=== PATIENT | male | born 1955 | race Caucasian/White ===

== ENCOUNTER 2020-03-17 06:43 | Emergency (ER) | payer OTHER ==
[~2020-03-17] VITALS: Ht 188 cm; Wt 77.1 kg
[2020-03-17] MEDS ORDERED: ADVAIR 250-501 EACH INH (06:51)
[2020-03-17] MEDS ORDERED: SPIRIVA18 MCG INH (06:52)
[2020-03-17] MEDS ORDERED: ASMANEX110 MCG (06:52)
[2020-03-17 07:12] LABS: HEMATOCRIT 41.1 % (42.0-52.0); HEMOGLOBIN 13.8 gm/dL (14.0-18.0); MCH 29.2 pg (26.0-34.0); MCHC 33.6 g/dL (28.0-37.0); MCV 86.9 fL (80.0-100.0); PLATELET COUNT 207 thou/uL (150-400); RBC 4.73 mil/uL (4.50-6.00); RDW 14.3 % (10.5-14.5); WBC 5.7 thou/uL (4.0-11.0)
[2020-03-17 07:36] LABS: CALCIUM 8.4 mg/dL (8.5-10.1); CREATININE 0.8 mg/dL (0.7-1.3); MAGNESIUM 2.1 mg/dL (1.8-2.4); POTASSIUM 4.1 mmol/L (3.5-5.1)
[2020-03-17] MEDS ORDERED: PREDNISONE 20 M20 M1 PO (08:59)
[2020-03-17 09:06] VITALS: BP 149/89
[2020-03-17 12:57] LABS: METAMYELOCYTES 1 %
[2020-03-17 12:58] LABS: ABSOLUTE NEUTROPHILS 2.8 thou/uL (1.4-8.2); ANISOCYTOSIS SLIGHT
--- NOTE | 2020-03-20 08:15 | EKG ---
[facility] [place] [address] ELECTROCARDIOGRAM REPORT Name: RIGOBERTO LAI Room #: DEP [facility]#: [id number] Admission: 03/17/20 Attend Phys: Discharge: 03/17/20 Date of : 59 Report #: [id number] THIS REPORT FOR: cc: FAM - Family physician unknown FAM - Family physician unknown Cr Cuevas MD 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
== END 2020-03-17 09:30 | disposition home or self-care (01) ==
LOC: ER 06:43
PROVIDERS: Emergency Medicine
DX: J44.1 Chronic obstructive pulmonary disease with (acute) exacerbation (principal); Z20.828 Contact with and (suspected) exposure to other viral communicable diseases; Z79.899 Other long term (current) drug therapy; Z98.890 Other specified postprocedural states; Z98.84 Bariatric surgery status

== ENCOUNTER 2020-06-30 23:54 | Emergency (ER) | payer OTHER ==
[~2020-06-30] VITALS: Ht 172.7 cm; Wt 81.7 kg
[~2020-06-30 23:54] MED LIST: ADVAIR 250-501 EACH INH; ASMANEX110 MCG; PREDNISONE 20 M20 M1 PO; SPIRIVA18 MCG INH
[2020-07-01] MEDS ORDERED: PREDNISONE50 MG PO (03:13)
[2020-07-01 03:54] VITALS: BP 115/71
== END 2020-07-01 04:02 | disposition home or self-care (01) ==
LOC: ER 23:54
DX: J44.1 Chronic obstructive pulmonary disease with (acute) exacerbation (principal); Z79.899 Other long term (current) drug therapy

== ENCOUNTER 2020-07-21 22:19 | Emergency (ER) | payer OTHER ==
[~2020-07-21] VITALS: Ht 188 cm; Wt 90.7 kg
[~2020-07-21 22:19] MED LIST changes: +PREDNISONE50 MG PO
[2020-07-21 23:36] LABS: ABSOLUTE NEUTROPHILS 3.4 thou/uL (1.4-8.2); BASOPHILS 1.1 % (0.0-2.0); EOSINOPHILS 10.8 % (0.0-3.0); HEMATOCRIT 38.3 % (42.0-52.0); HEMOGLOBIN 12.6 gm/dL (14.0-18.0); LYMPHOCYTES 22.2 % (24.0-44.0); MCH 28.5 pg (26.0-34.0); MCV 86.4 fL (80.0-100.0); MONOCYTES 7.1 % (1.0-8.0); PLATELET COUNT 190 thou/uL (150-400); POLYS 58.8 % (36.0-66.0); RBC 4.43 mil/uL (4.50-6.00); RDW 13.9 % (10.5-14.5); WBC 5.7 thou/uL (4.0-11.0)
[2020-07-21 23:49] LABS: ANION GAP 7 mmol/L (7-16); BUN 14 mg/dL (7-18); CALCIUM 8.6 mg/dL (8.5-10.1); CHLORIDE 106 mmol/L (98-107); CO2 25 mmol/L (21-32); CREATININE 0.8 mg/dL (0.7-1.3); GLUCOSE 96 mg/dL (74-106); POTASSIUM 3.9 mmol/L (3.5-5.1); SODIUM 138 mmol/L (136-145)
[2020-07-21 23:58] LABS: ALBUMIN 3.5 g/dL (3.4-5.0); SGOT 17 U/L (15-37); SGPT 28 U/L (30-65); TOTAL BILIRUBIN 0.4 mg/dL (0.2-1.0); TOTAL PROTEIN 6.1 g/dL (6.4-8.2); TROPONIN-I <0.06 ng/mL (<0.06)
[2020-07-22] MEDS ORDERED: PREDNISONE 20 M20 M1 PO (01:46)
[2020-07-22 02:20] VITALS: BP 135/72
[2020-07-22] MEDS ORDERED: PROAIR HFA8.5 GM INH (02:22)
--- NOTE | 2020-07-24 07:27 | EKG ---
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
== END 2020-07-22 02:30 | disposition home or self-care (01) ==
LOC: ER 22:19
PROVIDERS: Student in an Organized Health Care Education/Training Program
DX: J44.1 Chronic obstructive pulmonary disease with (acute) exacerbation (principal); Z79.899 Other long term (current) drug therapy

== ENCOUNTER 2020-08-03 20:49 | Inpatient (IN) | payer OTHER ==
[~2020-08-03] VITALS: Ht 188 cm; Wt 86.2 kg
[~2020-08-03 20:49] MED LIST changes: +PROAIR HFA8.5 GM INH
[2020-08-03 20:50] VITALS: BP 133/79
[2020-08-03 21:27] LABS: ABSOLUTE NEUTROPHILS 4.8 thou/uL (1.4-8.2); BASOPHILS 0.8 % (0.0-2.0); EOSINOPHILS 9.9 % (0.0-3.0); HEMATOCRIT 40.3 % (42.0-52.0); HEMOGLOBIN 13.7 gm/dL (14.0-18.0); LYMPHOCYTES 18.3 % (24.0-44.0); MCH 28.9 pg (26.0-34.0); MCHC 33.9 g/dL (28.0-37.0); MCV 85.4 fL (80.0-100.0); MONOCYTES 7.6 % (1.0-8.0); PLATELET COUNT 201 thou/uL (150-400); POLYS 63.4 % (36.0-66.0); RBC 4.72 mil/uL (4.50-6.00); RDW 14.3 % (10.5-14.5); WBC 7.5 thou/uL (4.0-11.0)
[2020-08-03 21:34] LABS: ANION GAP 7 mmol/L (7-16); BUN 16 mg/dL (7-18); CALCIUM 8.6 mg/dL (8.5-10.1); CHLORIDE 109 mmol/L (98-107); CO2 25 mmol/L (21-32); CREATININE 0.9 mg/dL (0.7-1.3); GLUCOSE 86 mg/dL (74-106); SODIUM 141 mmol/L (136-145)
[2020-08-03 21:44] LABS: ALBUMIN 3.6 g/dL (3.4-5.0); SGOT 15 U/L (15-37); SGPT 24 U/L (30-65); TOTAL BILIRUBIN 0.3 mg/dL (0.2-1.0); TOTAL PROTEIN 6.2 g/dL (6.4-8.2); TROPONIN-I <0.06 ng/mL (<0.06)
[2020-08-04 04:52] VITALS: BP 123/64
[2020-08-04 07:23] VITALS: BP 129/73
--- NOTE | 2020-08-04 07:28 | NUR ---
PT ARRIVED TO UNIT APPROX 0540. ADMISSION AND ASSESSMENT COMPLETED. PT A&Ox4, UP AD ANUJA, EDUCATED TO CALL FOR HELP NEEDED. PT ON RA, COARSE/WHEEZY LUNGS W/ SOME CRACKLES IN BASES. REGULAR HR, ACTIVE BOWEL SOUNDS. NEW IV PLACED TO LEFT FA. NO OTHER CONCERNS, SHIFT REPORT GIVEN AT 0700.
--- NOTE | 2020-08-04 07:45 | EKG ---
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
[2020-08-04 11:02] LABS: HEMATOCRIT 40.5 % (42.0-52.0); HEMOGLOBIN 13.4 gm/dL (14.0-18.0); MCH 28.3 pg (26.0-34.0); MCV 85.8 fL (80.0-100.0); RBC 4.72 mil/uL (4.50-6.00); RDW 14.7 % (10.5-14.5); WBC 8.3 thou/uL (4.0-11.0)
[2020-08-04 11:09] LABS: CALCIUM 9.3 mg/dL (8.5-10.1); POTASSIUM 4.2 mmol/L (3.5-5.1)
[2020-08-04 15:59] VITALS: BP 129/75
--- NOTE | 2020-08-04 16:06 | NUR ---
INITIAL ASSESSMENT: Consult received. ASHLEY reviewed chart and spoke with nursing and attending physician. Pt was admitted from home due to COPD exacerbation. Pt placed in Enhanced Isolation to r/o COVID-19. Pt's test was negative. Pt is on IV abx and IV steroids. ASHLEY spoke with pt via phone. Introduced role of SW. Pt is alert/orientated x 4. Pt reports he lives at home with his . Prior to admission, pt was independent with ADLs. Pt does not use any DME for ambulation. No hx of services or post-acute placement. Pt's PCP is in [place]. Pt unsure of PCP's name. Pt interested in following up with pulmonology group at [facility]. Pt wanting to confirm they accept his insurance. ASHLEY faxed faced sheet to pulm office. The business office closed at 1200 today. Will follow up with pulm office on Friday and notify pt. Per pt, he may discharge home later today or tomorrow. No discharge needs identified. ASHLEY is available to assist should needs arise.
--- NOTE | 2020-08-04 18:23 | NUR ---
ASSUMED PATIENT CARE AT 0700. A/O X4. TOLERATED ON RA. COVID NEGATIVE. PROGRESSING TOWARDS POC GOALS.
[2020-08-04 20:50] VITALS: BP 116/64
--- NOTE | 2020-08-04 23:16 | NUR ---
ASSUMED PT CARE AT AROUND 1915 HRS. PT IS ALERT AND ORIENTED. UP AD ANUJA IN ROOM. HE DENIES ANY PAIN. MILD SOA WITH ACTIVITY WELL MILD PURCHASING ENGINEER COUGH. HE CONTINUES ON NEBULIZER TREATMENTS. AFEBRILE. VOIDING PER URINAL.REPORTS GOOD APPETITE WITH NO GI DISCOMFORT.SATTING WELL ABOVE 95% ON ROOM AIR. APPEARS TO BE IN NO DISTRESS.CALLS WITH NEEDS. CALL LIGHT WITHIN REACH.
[2020-08-05 05:06] VITALS: BP 124/74
[2020-08-05 05:33] LABS: CALCIUM 9.2 mg/dL (8.5-10.1); CREATININE 0.9 mg/dL (0.7-1.3); POTASSIUM 4.1 mmol/L (3.5-5.1)
[2020-08-05 09:13] VITALS: BP 116/72
[2020-08-05] MEDS ORDERED: LEVOFLOXACIN750 MG PO (15:21)
[2020-08-05 15:23] VITALS: BP 123/80
[2020-08-05] MEDS ORDERED: PREDNISONE 5 MG5 M1 PO (15:23)
[2020-08-05 15:37] VITALS: BP 123/80
--- NOTE | 2020-08-05 15:48 | NUR ---
PATIENT TOLERATED ON RA WELL. UP AD ANUJA. DC TO HOME NOW
== END 2020-08-05 16:10 | disposition home or self-care (01) | DRG 193 ==
LOC: ER 20:49 → 3W 08-04 02:19 → EROBS 08-04 02:19 → 3W 08-04 05:28
PROVIDERS: Emergency Medicine; Nurse Practitioner Family; ADMIT Hospitalist; ATTEND Hospitalist
DX: J18.9 Pneumonia, unspecified organism (principal); J96.01 Acute respiratory failure with hypoxia; J44.1 Chronic obstructive pulmonary disease with (acute) exacerbation; J44.0 Chronic obstructive pulmonary disease with (acute) lower respiratory infection; J98.11 Atelectasis; Z20.828 Contact with and (suspected) exposure to other viral communicable diseases; Z90.49 Acquired absence of other specified parts of digestive tract; Z98.84 Bariatric surgery status; Z79.899 Other long term (current) drug therapy; Z87.891 Personal history of nicotine dependence
CPT/HCPCS: 10080

== ENCOUNTER 2020-10-16 16:01 | Emergency (ER) | payer OTHER ==
[~2020-10-16] VITALS: Ht 188 cm; Wt 88.5 kg
[~2020-10-16 16:01] MED LIST changes: +LEVOFLOXACIN750 MG PO; +PREDNISONE 5 MG5 M1 PO
[2020-10-16] MEDS ORDERED: PREDNISONE 5 MG5 M1 PO (16:16)
[2020-10-16 17:42] VITALS: BP 135/78
[2020-10-16] MEDS ORDERED: ALBUTEROL2.5 MG/3 M INH (19:15)
[2020-10-16] MEDS ORDERED: PROAIR HFA8.5 GM INH (19:15)
[2020-10-16] MEDS ORDERED: PREDNISONE 20 M20 M1 PO (19:15)
--- NOTE | 2020-10-17 07:30 | EKG ---
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: sidney : 1955 Requested By: Wang Lozano Order Number: [id number] MD: Emil Jaramillo Measurements Intervals [place] Rate: 79 P: 57 [place]: 161 QRS: -16 QRSD: 111 T: 55 QT: 384 QTc: 441 Interpretive Statements Sinus rhythm Borderline left axis deviation RSR' in V1 or V2, right VCD or RVH Compared to ECG 08/03/2020 23:15:26 Right ventricular hypertrophy now present Electronically Signed On 10-17-2020 7:30:02 CARD LACER JACQUARD by Emil Jaramillo [email or web address] <ELECTRONICALLY SIGNED> By: Emil Jaraimllo MD, [facility] 10/17/20729 1639 1639 Emil Jaramillo MD, FACC /EPI
== END 2020-10-16 19:15 | disposition home or self-care (01) ==
LOC: ER 16:01
DX: J45.901 Unspecified asthma with (acute) exacerbation (principal); J44.9 Chronic obstructive pulmonary disease, unspecified; Z79.899 Other long term (current) drug therapy; Z87.891 Personal history of nicotine dependence; Z20.828 Contact with and (suspected) exposure to other viral communicable diseases

== ENCOUNTER 2020-10-29 21:51 | Inpatient (IN) | payer OTHER ==
[~2020-10-29] VITALS: Ht 188 cm; Wt 90.7 kg
[~2020-10-29 21:51] MED LIST changes: +ALBUTEROL2.5 MG/3 M INH
[2020-10-29 21:53] VITALS: BP 127/94
[2020-10-29 22:18] LABS: ABSOLUTE NEUTROPHILS 6.8 thou/uL (1.4-8.2)
[2020-10-29 22:23] LABS: ANION GAP 11 mmol/L (7-16); BASOPHILS 0.8 % (0.0-2.0); BUN 19 mg/dL (7-18); CALCIUM 9.4 mg/dL (8.5-10.1); CHLORIDE 105 mmol/L (98-107); CO2 25 mmol/L (21-32); CREATININE 0.9 mg/dL (0.7-1.3); EOSINOPHILS 7.5 % (0.0-3.0); GLUCOSE 95 mg/dL (74-106); HEMATOCRIT 42.6 % (42.0-52.0); LYMPHOCYTES 12.9 % (24.0-44.0); MCH 28.6 pg (26.0-34.0); MCHC 32.9 g/dL (28.0-37.0); MCV 87.1 fL (80.0-100.0); MONOCYTES 11.3 % (1.0-8.0); PLATELET COUNT 260 thou/uL (150-400); POLYS 67.5 % (36.0-66.0); POTASSIUM 4.4 mmol/L (3.5-5.1); RBC 4.89 mil/uL (4.50-6.00); SODIUM 141 mmol/L (136-145)
[2020-10-29 22:32] LABS: TROPONIN-I <0.06 ng/mL (<0.06)
[2020-10-30] VITALS (7 sets, daily range): BP systolic 113–154; BP diastolic 62–93
--- NOTE | 2020-10-30 07:45 | NUR ---
ASSUMED CARE OF PT AT 0345HRS FROM ED. PT AOX4 AND LETS NEEDS BE KNOWN. PT WAS ORIENTED TO THE UNIT AND HIS ROOM. PT WAS ABLE TO ANSWER ALL ADMISSION RELATED QUESTIONS AND SIGN OWN CONSENTS. PT DENIES PAIN OR NAUSEA. ASSESSMENT CHARTED. PT ON TELE. PT DESATS WITH ACTIVITY. VSS AND NO S/S OF ACUTE DISTRESS. PT ON RA. REPORT GIVEN TO AM RN.
--- NOTE | 2020-10-30 11:13 | EKG ---
[address] [place] [address] ELECTROCARDIOGRAM REPORT Name: RIGOBERTO LAI Room #: 460-P ADM IN M.R.#: [id number] Admission: 10/30/20 Attend Phys: Hi Bennett MD Discharge: Date of : 59 Report #: [id number] 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: [facility] 1955 Requested By: Sofia Crabtree Order Number: [id number] MD: Emil Jaramillo Measurements Intervals [place] Rate: 99 P: 68 [place]: 158 QRS: -4 QRSD: 99 T: 62 QT: 353 QTc: 453 Interpretive Statements Sinus rhythm Inferior infarct, old Compared to ECG 10/16/2020 16:39:41 Myocardial infarct finding now present Right ventricular hypertrophy no longer present Electronically Signed On 10-30-2020 11:12:53 SEWING LINE BALER by Emil Jaramillo [email or web address] <ELECTRONICALLY SIGNED> By: Emil Jaramillo MD, [facility] 10/30/20 1112 40 40 Emil Jaramillo MD, FACC /EPI
--- NOTE | 2020-10-30 16:12 | NUR ---
PT ADMITTED RELATED TO SOB; COPD EX. CM REVIEWED CHART AND SPOKE WITH CARE TEAM. CM CALLED AND SPOKE WITH PT OVER THE PHONE THIS DAY. PT APPREARED TO BE A&O X4. CM ROLE INTRODUCED. PT INDICATED HE RESIDES IN AN APARTMENT AT [place] WITH HIS . 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 PT INDICATED NO DME OR HOME O2. PT HAD NEBULIZER. PT INDICATED NO HH HX. PT INDICATED THAT HE SEES A PCP AT CLINIC [facility] TO [facility] FIRST NAME JASPER. PT INDICATED HE IS RECEPTIVE TO HH IF NEEDED UPON DC. CM TO FOLLOW INDICATED WITH DC PLANNING.
--- NOTE | 2020-10-30 18:10 | NUR ---
ASSUMED CARE OF PATIENT AFTER REPORT. ASSESSMENT CHARTED. NO MEDICATIONS WERE REQUESTED PER PATIENT. PATIENT IS A&OX4 AND MAKES NEEDS KNOWN. PATIENT GETS UP INDEPENDENTLY W STEADY GAIT. RECIEVED BREATHING TX. VSS, DENIES PAIN. VOICED NO CONCERNS THIS SHIFT. SPOUSE AT BEDSIDE. WILL CONTINUE TO MONITOR AND FOLLOW PLAN OF CARE
--- NOTE | 2020-10-31 05:22 | NUR ---
Pt. rested quietly during the night when checked on during frequent rounds. He offers no c/o shortness of air. Up ad lo in the room. No c/o pain.
--- NOTE | 2020-10-31 08:00 | NUR ---
PT RESTING IN BED. PT DENIES ANY PAIN AT THIS TIME OR SOB. PT STATED HE DOES GET SOA WITH ACTIVITY. PT ON ROOM AIR AT THIS TIME. PT LBM 10/31. PT LUNGS CLEAR AT THIS TIME. PT STATED HE HAS DRY COUGH NO PRODUCTION.
[2020-10-31 10:15] VITALS: BP 116/68
[2020-10-31] MEDS ORDERED: PREDNISONE 5 MG5 M1 PO (11:10)
[2020-10-31 14:29] VITALS: BP 116/68
[2020-10-31 14:30] VITALS: BP 116/68
--- NOTE | 2020-10-31 16:09 | NUR ---
PT VERBALY UNDERSTOOD D/C ORDERS. PT LEFT VIA W/C WITH STAFF AND . PT IN A GOOD MOOD WHEN LEAVING MAKING JOKES AND TOLERATING ACTIVITY WITHOUT SOB.
== END 2020-10-31 16:11 | disposition home or self-care (01) | DRG 189 ==
LOC: ER 21:51 → 4W 10-30 00:37 → EROBS 10-30 00:37 → 4W 10-30 03:45
PROVIDERS: Emergency Medicine; ADMIT Hospitalist; ATTEND Hospitalist
DX: J96.01 Acute respiratory failure with hypoxia (principal); J44.1 Chronic obstructive pulmonary disease with (acute) exacerbation; D72.10 Eosinophilia, unspecified; Z20.822 Contact with and (suspected) exposure to COVID-19; Z90.49 Acquired absence of other specified parts of digestive tract; Z98.84 Bariatric surgery status; Z79.899 Other long term (current) drug therapy; Z87.891 Personal history of nicotine dependence
CPT/HCPCS: 10045

== ENCOUNTER 2021-02-04 13:45 | Emergency (ER) | payer OTHER ==
[~2021-02-04] VITALS: Ht 188 cm; Wt 90.7 kg
[2021-02-04 14:27] LABS: HEMOGLOBIN 13.9 gm/dL (14.0-18.0)
[2021-02-04 14:32] LABS: HEMATOCRIT 40.7 % (42.0-52.0); MCH 28.6 pg (26.0-34.0); MCHC 34.1 g/dL (28.0-37.0); MCV 83.9 fL (80.0-100.0); PLATELET COUNT 215 thou/uL (150-400); RBC 4.85 mil/uL (4.50-6.00); RDW 13.9 % (10.5-14.5); WBC 8.5 thou/uL (4.0-11.0)
[2021-02-04 14:37] LABS: CALCIUM 8.6 mg/dL (8.5-10.1); CREATININE 0.9 mg/dL (0.7-1.3)
[2021-02-04 14:45] LABS: ALBUMIN 3.7 g/dL (3.4-5.0); TOTAL BILIRUBIN 0.4 mg/dL (0.2-1.0); TOTAL PROTEIN 6.3 g/dL (6.4-8.2)
[2021-02-04 14:51] LABS: PLATELET ESTIMATE NORMAL
[2021-02-04] MEDS ORDERED: PREDNISONE 10 M10 MG PO (16:35)
[2021-02-04] MEDS ORDERED: DOXYCYCLINE 10100 M2 PO (16:35)
[2021-02-04 16:49] VITALS: BP 120/80
--- NOTE | 2021-02-05 07:02 | EKG ---
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: zi : 1955 Requested By: Amarilis Pierce Order Number: [id number] MD: Emil Jaramillo Measurements Intervals [place] Rate: 61 P: 19 [place]: 180 QRS: -15 QRSD: 108 T: 42 QT: 427 QTc: 430 Interpretive Statements Sinus rhythm Borderline left axis deviation Low voltage, precordial leads RSR' in V1 or V2, probably normal variant Baseline wander in lead(s) V3 Compared to ECG 10/29/2020 22:41:57 Low QRS voltage now present RSR' in V1 or V2 now present Myocardial infarct finding no longer present Electronically Signed On 02-05-2021 7:02:35 CDT by Emil Jaramillo [email or web address] <ELECTRONICALLY SIGNED> By: Emil Jaramillo MD, [facility] 02/05/21 0702 151 151 Emil Jaramillo MD, [facility] /EPI
== END 2021-02-04 16:51 | disposition home or self-care (01) ==
LOC: ER 13:45
PROVIDERS: Nurse Practitioner Family
DX: J44.1 Chronic obstructive pulmonary disease with (acute) exacerbation (principal); Z98.84 Bariatric surgery status; Z79.899 Other long term (current) drug therapy

== ENCOUNTER → 2021-02-05 | Outpatient (CLI) | payer OTHER ==
[~2021-02-05] MED LIST changes: +DOXYCYCLINE 10100 M2 PO; +PREDNISONE 10 M10 MG PO
== END ==
LOC: CAT 11:22
PROVIDERS: ATTEND Pediatrics
DX: R91.1 Solitary pulmonary nodule (principal); R91.8 Other nonspecific abnormal finding of lung field; I25.10 Atherosclerotic heart disease of native coronary artery without angina pectoris; G47.33 Obstructive sleep apnea (adult) (pediatric); R06.00 Dyspnea, unspecified

== ENCOUNTER 2021-03-04 20:39 | Emergency (ER) | payer OTHER ==
[~2021-03-04] VITALS: Ht 188 cm; Wt 93.0 kg
[2021-03-04 21:22] LABS: ABSOLUTE NEUTROPHILS 5.1 thou/uL (1.4-8.2); BASOPHILS 1.1 % (0.0-2.0); EOSINOPHILS 10.6 % (0.0-3.0); HEMATOCRIT 40.9 % (42.0-52.0); HEMOGLOBIN 13.6 gm/dL (14.0-18.0); LYMPHOCYTES 15.3 % (24.0-44.0); MCH 28.2 pg (26.0-34.0); MCHC 33.2 g/dL (28.0-37.0); MONOCYTES 7.1 % (1.0-8.0); PLATELET COUNT 211 thou/uL (150-400); POLYS 65.9 % (36.0-66.0); RBC 4.82 mil/uL (4.50-6.00); RDW 14.3 % (10.5-14.5); WBC 7.7 thou/uL (4.0-11.0)
[2021-03-04 21:30] LABS: ANION GAP 10 mmol/L (7-16); BUN 14 mg/dL (7-18); CALCIUM 8.9 mg/dL (8.5-10.1); CHLORIDE 108 mmol/L (98-107); CO2 25 mmol/L (21-32); GLUCOSE 121 mg/dL (74-106); POTASSIUM 4.5 mmol/L (3.5-5.1); SODIUM 143 mmol/L (136-145)
[2021-03-04 21:41] LABS: ALBUMIN 3.7 g/dL (3.4-5.0); SGOT 14 U/L (15-37); SGPT 25 U/L (16-63); TOTAL BILIRUBIN 0.4 mg/dL (0.2-1.0); TOTAL PROTEIN 6.5 g/dL (6.4-8.2); TROPONIN-I <0.06 ng/mL (<0.06)
[2021-03-04] MEDS ORDERED: PREDNISONE 20 M20 MG PO (22:29)
[2021-03-04 22:35] VITALS: BP 117/74
--- NOTE | 2021-03-05 07:06 | EKG ---
[place] [address] [facility] [place] [address] ELECTROCARDIOGRAM REPORT Name: RIGOBERTO LAI Room #: DEP AYLA Gomez#: [id number] Admission: 03/04/21 Attend Phys: Discharge: 03/04/21 Date of : 59 Report #: [id number] [facility] ED Test Date: 2021-03-04 Test Time: 20:53:57 Pat Name: RIGOBERTO LAI Department: Room: Gender: M Emergency Department Coordinator: AURE : 1955 Requested By: Mari Guerra Order Number: [id number] MD: Emil Jaramillo Measurements Intervals [place] Rate: 86 P: 56 [place]: 152 QRS: -3 QRSD: 118 T: 60 QT: 380 QTc: 455 Interpretive Statements Sinus rhythm Nonspecific intraventricular conduction delay Compared to ECG 02/04/2021 15:13:50 Intraventricular conduction delay now present Electronically Signed On 03-05-2021 7:06:18 CDT by Emil Jaramillo [email or web address] <ELECTRONICALLY SIGNED> By: Emil Jaramillo MD, [facility] 03/05/21705 52 52 Emil Jaramillo MD, FACC /EPI
== END 2021-03-04 22:45 | disposition home or self-care (01) ==
LOC: ER 20:39
PROVIDERS: Physician Assistant
DX: J44.1 Chronic obstructive pulmonary disease with (acute) exacerbation (principal); Z79.899 Other long term (current) drug therapy; Z98.84 Bariatric surgery status

== ENCOUNTER → 2021-05-09 | Outpatient (CLI) | payer OTHER ==
[~2021-05-09] MED LIST changes: +PREDNISONE 20 M20 MG PO
== END ==
LOC: RAD 11:46
PROVIDERS: ATTEND Pediatrics
DX: R06.02 Shortness of breath (principal)

== ENCOUNTER 2021-05-21 08:22 | Emergency (ER) | payer OTHER ==
[~2021-05-21] VITALS: Ht 188 cm; Wt 93.0 kg
[2021-05-21] MEDS ORDERED: CIPROFLOXACIN500 M1 PO (10:46)
[2021-05-21 12:12] VITALS: BP 146/97
--- NOTE | 2021-05-21 15:52 | EKG ---
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: : 1955 Requested By: Sofia Crabtree Order Number: [id number] MD: Cr Cuevas Measurements Intervals [place] Rate: 85 P: 74 [place]: 167 QRS: 19 QRSD: 112 T: 69 QT: 389 QTc: 463 Interpretive Statements Sinus rhythm No significant abnormality Baseline wander in lead(s) V2 Compared to ECG 03/04/2021 20:53:57 No significant change was found Electronically Signed On 05-21-2021 15:52:19 CDT by Cr Cuevas [email or web address] <ELECTRONICALLY SIGNED> By: Cr Cuevas MD, [facility] 05/21/21 1552 0827 6 Cr Cuveas MD, [facility] /EPI
== END 2021-05-21 12:13 | disposition home or self-care (01) ==
LOC: ER 08:22
DX: J44.1 Chronic obstructive pulmonary disease with (acute) exacerbation (principal); Z20.822 Contact with and (suspected) exposure to COVID-19; Z90.49 Acquired absence of other specified parts of digestive tract; Z79.51 Long term (current) use of inhaled steroids; Z79.891 Long term (current) use of opiate analgesic; Z79.899 Other long term (current) drug therapy; Z87.891 Personal history of nicotine dependence

== ENCOUNTER → 2021-05-22 | Outpatient (CLI) | payer OTHER ==
[~2021-05-22] MED LIST changes: +CIPROFLOXACIN500 M1 PO
[2021-05-23 10:08] LABS: ANTI-DNA SCREEN <1 IU/mL (0-9); ANTI-RNP <0.2 AI (0.0-0.9)
[2021-05-24 11:08] LABS: ALTERNARIA <0.10 kU/L (Class 0); ASPERGILLUS IGE <0.10 kU/L (Class 0); BERMUDA GRASS <0.10 kU/L (Class 0); BOXELDER/MAPLE <0.10 kU/L (Class 0); CLADOSPORIUM <0.10 kU/L (Class 0); COCKROACH <0.10 kU/L (Class 0); COTTONWOOD <0.10 kU/L (Class 0); D. FARINAE <0.10 kU/L (Class 0); D. PTERONYSSINUS <0.10 kU/L (Class 0); DOG DANDER <0.10 kU/L (Class 0); ELM <0.10 kU/L (Class 0); MOUNTAIN CEDAR <0.10 kU/L (Class 0); MULBERRY IGE <0.10 kU/L (Class 0); OAK <0.10 kU/L (Class 0); PENICILLIUM NOTATUM <0.10 kU/L (Class 0); RUSSIAN THISTLE IGE <0.10 kU/L (Class 0); SHORT RAGWEED <0.10 kU/L (Class 0); TIMOTHY IGE <0.10 kU/L (Class 0); WHITE ASH IGE <0.10 kU/L (Class 0)
== END ==
LOC: LAB 10:03
PROVIDERS: ATTEND Pediatrics
DX: J98.4 Other disorders of lung (principal); J38.3 Other diseases of vocal cords; R79.89 Other specified abnormal findings of blood chemistry; R13.19 Other dysphagia

== ENCOUNTER → 2021-05-23 | Outpatient (CLI) | payer OTHER | LOC: SPEECH 08:50 → RAD 08:50 | PROVIDERS: ATTEND Pediatrics | DX: J38.3 Other diseases of vocal cords (principal); R79.89 Other specified abnormal findings of blood chemistry; R13.12 Dysphagia, oropharyngeal phase; J84.9 Interstitial pulmonary disease, unspecified; R05 Cough ==

== ENCOUNTER 2021-07-19 09:12 | Inpatient (IN) | payer OTHER ==
[~2021-07-19] VITALS: Ht 188 cm; Wt 95.3 kg
[2021-07-19 09:20] VITALS: BP 151/81
[2021-07-19] MEDS ORDERED: TRELEGY ELLIPT1 EACH INH (09:42)
[2021-07-19 10:24] LABS: ABSOLUTE NEUTROPHILS 3.6 thou/uL (1.4-8.2); BASOPHILS 0.9 % (0.0-2.0); EOSINOPHILS 7.9 % (0.0-3.0); HEMOGLOBIN 14.2 gm/dL (14.0-18.0); LYMPHOCYTES 16.1 % (24.0-44.0); MCH 27.9 pg (26.0-34.0); MCV 84.6 fL (80.0-100.0); MONOCYTES 6.4 % (1.0-8.0); PLATELET COUNT 171 thou/uL (150-400); POLYS 68.7 % (36.0-66.0); RBC 5.08 mil/uL (4.50-6.00); RDW 13.6 % (10.5-14.5); WBC 5.2 thou/uL (4.0-11.0)
[2021-07-19 10:30] LABS: CALCIUM 8.8 mg/dL (8.5-10.1); CREATININE 0.9 mg/dL (0.7-1.3)
[2021-07-19 12:13] VITALS: BP 133/86
[2021-07-19 12:55] VITALS: BP 142/101
--- NOTE | 2021-07-19 14:57 | NUR ---
assumed care of pt on arrival to unit at approx 1300. pt alert and oriented, in no apparent distress. weaned to room air, tolerating well. scattered wheezes to auscultation. up w/ steady gait. iv steroids and abx administered per order. good appetite. calls out appropriately. voicing no concerns at this time. sinus on telemetry. wcm.
--- NOTE | 2021-07-19 15:34 | EKG ---
[place] [address] [facility] [place] [address] ELECTROCARDIOGRAM REPORT Name: RIGOBERTO LAI Room #: 364-P ADM IN M.R.#: [id number] Admission: 07/19/21 Attend Phys: Hi Bennett MD Discharge: Date of : 59 Report #: [id number] [facility] ED Test Date: 2021-07-19 Test Time: 09:28:49 Pat Name: RIGOBERTO LAI Department: Room: 364 Gender: M Supervisor Fleshing: TERESA : 1955 Requested By: Bishop Moore Order Number: [id number] MD: Emil Jaramillo Measurements Intervals [place] Rate: 80 P: 79 [place]: 171 QRS: -14 QRSD: 106 T: 66 QT: 388 QTc: 448 Interpretive Statements Sinus rhythm Abnormal R-wave progression, early transition Inferior infarct, old Baseline wander in lead(s) V1,V5,V6 Compared to ECG 05/21/2021 08:27:59 Myocardial infarct finding now present Electronically Signed On 07-19-2021 15:34:44 CDT by Emil Jaramillo [email or web address] <ELECTRONICALLY SIGNED> By: Emil Jaramillo MD, [facility] 07/19/21 1534 Emil Jaramillo MD, [facility] /EPI
[2021-07-19 15:37] VITALS: BP 124/79
[2021-07-19 20:05] VITALS: BP 127/75
[2021-07-19 23:50] VITALS: BP 122/70; BP 131/67
[2021-07-20 03:26] VITALS: BP 133/87
--- NOTE | 2021-07-20 07:27 | NUR ---
PT MAKING PROGRESS TOWARDS GOAL. ON ROOM AIR THROUGHOUT THE NIGHT. DENIED ANY SOA WHILE AT REST. HAS BEEN ABLE TO AMBULATE TO THE TOILET W/O ANY DISTRESS.
[2021-07-20 07:39] VITALS: BP 124/79
--- NOTE | 2021-07-20 11:05 | NUR ---
INITIAL ASSESSMENT: SW reviewed chart and spoke with nursing and attending physician. Pt was admitted from home due to COPD. Pt is on IV abx and IV steroids. Pt may be ready to discharge home later today or tomorrow. SW met with pt at bedside. Introduced role of SW. Pt is alert/orientated x 4. Pt reports he lives at home with his and son. Prior to admission, pt was independent with ADLs. No use of DME. No hx of HH or post-acute placement. Pt's PCP is Dr. Josseline Wiley. No discharge needs identified at this time. SW is available to assist should needs arise.
[2021-07-20 15:53] VITALS: BP 139/88
[2021-07-20] MEDS ORDERED: AZITHROMYCIN500 MG PO (18:26)
[2021-07-20] MEDS ORDERED: PREDNISONE 10 M10 M1 PO (18:26)
[2021-07-20 18:40] VITALS: BP 139/88
--- NOTE | 2021-07-20 18:50 | NUR ---
stable for d/c. dc instructions given to patient and . agreeable. wheeled out to parking by staff.
== END 2021-07-20 19:09 | disposition home or self-care (01) | DRG 189 ==
LOC: ER 09:12 → 3W 11:15 → EROBS 11:15 → 3W 12:49
PROVIDERS: Emergency Medicine; ADMIT Hospitalist; ATTEND Hospitalist
DX: J96.01 Acute respiratory failure with hypoxia (principal); J44.1 Chronic obstructive pulmonary disease with (acute) exacerbation; Z20.822 Contact with and (suspected) exposure to COVID-19; J45.909 Unspecified asthma, uncomplicated; Z87.891 Personal history of nicotine dependence; Z79.899 Other long term (current) drug therapy; Z98.84 Bariatric surgery status
CPT/HCPCS: 10879

== ENCOUNTER → 2021-08-06 | Outpatient (CLI) | payer OTHER ==
[~2021-08-06] MED LIST changes: +AZITHROMYCIN500 MG PO; +PREDNISONE 10 M10 M1 PO; +TRELEGY ELLIPT1 EACH INH
[2021-08-06 10:37] LABS: CREATININE 0.9 mg/dL (0.7-1.3)
== END ==
LOC: CAT 09:54
PROVIDERS: ATTEND Pediatrics
DX: R91.1 Solitary pulmonary nodule (principal); J98.4 Other disorders of lung; R05.9 Cough, unspecified; R06.2 Wheezing; R06.02 Shortness of breath; J98.11 Atelectasis

== ENCOUNTER 2021-09-10 07:08 | Emergency (ER) | payer OTHER ==
[~2021-09-10] VITALS: Ht 188 cm; Wt 95.3 kg
[2021-09-10] MEDS ORDERED: PREDNISONE 20 M20 MG PO (08:13)
[2021-09-10] MEDS ORDERED: TRIMETHOPRIM /P10 M1 OPHTHALMIC (08:13)
[2021-09-10 08:26] VITALS: BP 134/82
--- NOTE | 2021-09-11 07:14 | EKG ---
[place] [address] [facility] [email or web address] [address] ELECTROCARDIOGRAM REPORT Name: RIGOBERTO LAI Room #: DEP Patricia#: [id number] Admission: 09/10/21 Attend Phys: Discharge: 09/10/21 Date of : 59 Report #: [id number] [facility] ED Test Date: 2021-09-10 Test Time: 07:23:09 Pat Name: RIGOBERTO ALI Department: Room: Gender: M Vulcanizer Rubber Plate: JESSE : 1955 Requested By: Diane Adams Order Number: [id number] MD: Emil Jaramillo Measurements Intervals [place] Rate: 69 P: 20 FL: 164 QRS: -30 QRSD: 107 T: 45 QT: 415 QTc: 445 Interpretive Statements Sinus rhythm RSR' in V1 or V2, probably normal variant Left ventricular hypertrophy Baseline wander in lead(s) V4 Compared to ECG 07/19/2021 09:28:49 RSR' in V1 or V2 now present Left ventricular hypertrophy now present Myocardial infarct finding no longer present Electronically Signed On 09-11-2021 7:13:48 CABLE SPLICER HELPER by Emil Jaramillo [email or web address] <ELECTRONICALLY SIGNED> By: Emil Jaramillo MD, [facility]ACC 09/11/21712 2 2 Emil Jaramillo MD, [facility] /EPI
== END 2021-09-10 08:27 ==
LOC: ER 07:08
DX: J06.9 Acute upper respiratory infection, unspecified (principal); Z20.822 Contact with and (suspected) exposure to COVID-19; J44.9 Chronic obstructive pulmonary disease, unspecified; Z79.51 Long term (current) use of inhaled steroids; Z79.891 Long term (current) use of opiate analgesic; Z79.899 Other long term (current) drug therapy; Z87.891 Personal history of nicotine dependence

== ENCOUNTER 2021-09-24 16:56 | Emergency (ER) | payer OTHER ==
[~2021-09-24] VITALS: Ht 188 cm; Wt 95.3 kg
[~2021-09-24 16:56] MED LIST changes: +TRIMETHOPRIM /P10 M1 OPHTHALMIC
[2021-09-24 19:12] LABS: HEMATOCRIT 41.7 % (42.0-52.0); HEMOGLOBIN 13.7 gm/dL (14.0-18.0); MCHC 32.8 g/dL (28.0-37.0); MCV 85.2 fL (80.0-100.0); PLATELET COUNT 119 thou/uL (150-400); RBC 4.89 mil/uL (4.50-6.00); RDW 13.7 % (10.5-14.5); WBC 2.6 thou/uL (4.0-11.0)
[2021-09-24 19:20] LABS: CALCIUM 8.8 mg/dL (8.5-10.1); CREATININE 0.9 mg/dL (0.7-1.3); POTASSIUM 3.6 mmol/L (3.5-5.1)
[2021-09-24 19:26] LABS: ALBUMIN 3.8 g/dL (3.4-5.0); TOTAL BILIRUBIN 0.5 mg/dL (0.2-1.0); TOTAL PROTEIN 6.6 g/dL (6.4-8.2)
[2021-09-24 19:56] LABS: ABSOLUTE NEUTROPHILS 1.8 thou/uL (1.4-8.2)
[2021-09-24 20:49] VITALS: BP 152/88
--- NOTE | 2021-09-25 07:54 | EKG ---
[facility] [address] ELECTROCARDIOGRAM REPORT Name: LAIRIGOBERTO REA Room #: DEP Patricia#: [id number] Admission: 09/24/21 Attend Phys: Discharge: 09/24/21 Date of : 59 Report #: [id number] [facility] ED Test Date: 2021-09-24 Test Time: 17:03:05 Pat Name: RIGOBERTO LAI Department: Room: Gender: M Cashiers Bussers Food Runners: RADHA : 1955 Requested By: Diane Adams Order Number: [id number] MD: Cr Cuevas Measurements Intervals [place] Rate: 86 P: 33 [place]: 159 QRS: -35 QRSD: 108 T: 46 QT: 358 QTc: 429 Interpretive Statements Sinus rhythm Incomplete RBBB and LAFB Abnormal R-wave progression, late transition Borderline ST elevation, anterior leads consider Brugada syndrome Compared to ECG 09/10/2021 07:23:09 Left anterior fascicular block now present ST (T wave) deviation now present Electronically Signed On 09-25-2021 7:54:23 OIL BURNER TECHNICIAN by Cr Cuevas [email or web address] <ELECTRONICALLY SIGNED> By: Cr Cuevas MD, [facility] 09/25/21 0754 1703 1703 Cr Cuevas MD, [facility] /EPI
== END 2021-09-24 20:50 | disposition home or self-care (01) ==
LOC: ER 16:56
PROVIDERS: Nurse Practitioner
DX: J10.1 Influenza due to other identified influenza virus with other respiratory manifestations (principal); Z20.822 Contact with and (suspected) exposure to COVID-19; R06.00 Dyspnea, unspecified; J44.9 Chronic obstructive pulmonary disease, unspecified; Z79.51 Long term (current) use of inhaled steroids; Z79.899 Other long term (current) drug therapy; Z87.891 Personal history of nicotine dependence

== ENCOUNTER 2021-10-10 13:46 | Inpatient (IN) | payer OTHER ==
[~2021-10-10] VITALS: Ht 188 cm; Wt 86.7 kg
[2021-10-10 13:47] VITALS: BP 110/67
[2021-10-10 14:15] LABS: HEMATOCRIT 38.3 % (42.0-52.0); HEMOGLOBIN 12.9 gm/dL (14.0-18.0); MCH 27.7 pg (26.0-34.0); MCHC 33.6 g/dL (28.0-37.0); MCV 82.6 fL (80.0-100.0); PLATELET COUNT 416 thou/uL (150-400); RBC 4.64 mil/uL (4.50-6.00); RDW 13.6 % (10.5-14.5); WBC 7.7 thou/uL (4.0-11.0)
[2021-10-10 14:29] LABS: CALCIUM 8.6 mg/dL (8.5-10.1); CREATININE 0.8 mg/dL (0.7-1.3); POTASSIUM 3.1 mmol/L (3.5-5.1)
[2021-10-10 14:48] LABS: ALBUMIN 2.4 g/dL (3.4-5.0); MAGNESIUM 1.8 mg/dL (1.8-2.4); TOTAL BILIRUBIN 0.6 mg/dL (0.2-1.0); TOTAL PROTEIN 6.6 g/dL (6.4-8.2)
[2021-10-10 15:52] LABS: ABSOLUTE NEUTROPHILS 6.2 thou/uL (1.4-8.2)
[2021-10-10 17:31] LABS: APTT 32.5 Seconds (24.5-32.8); D-DIMER 0.71 ug/mLFEU (0.19-0.50)
[2021-10-10 17:40] LABS: INR 1.1; PROTIME 11.9 Seconds (9.3-11.4)
[2021-10-10 19:22] LABS: URINE BILIRUBIN NEGATIVE (Negative); URINE BLOOD NEGATIVE (Negative); URINE CLARITY SL CLOUDY; URINE COLOR YELLOW; URINE GLUCOSE-RANDOM* NEGATIVE (Negative); URINE KETONES NEGATIVE (Negative); URINE NITRITE-REFLEX NEGATIVE (Negative); URINE PROTEIN (DIPSTICK) NEGATIVE (Negative); URINE UROBILINOGEN >= 8.0 E.U./dl (0.2-1.0)
[2021-10-10 19:26] LABS: URINE LEUKOCYTES-REFLEX 1+ (Negative)
[2021-10-10 19:31] LABS: CASTS None Seen /LPF (None Seen); SQUAMOUS 0-3 Few /LPF (0-3)
[2021-10-10 19:32] LABS: CRYSTALS None Seen /LPF (None Seen); URINE RBC 1-2 Rare /HPF (NONE SEEN); URINE WBC-REFLEX 6-15 Few /HPF (0-5)
[2021-10-10 21:58] VITALS: BP 98/62
--- NOTE | 2021-10-11 02:00 | NUR ---
700CC URINE VIA URINAL
[2021-10-11 06:29] LABS: HEMATOCRIT 37.1 % (42.0-52.0); HEMOGLOBIN 12.4 gm/dL (14.0-18.0); MCH 27.7 pg (26.0-34.0); MCHC 33.4 g/dL (28.0-37.0); MCV 83.1 fL (80.0-100.0); RBC 4.47 mil/uL (4.50-6.00); RDW 13.7 % (10.5-14.5); WBC 6.5 thou/uL (4.0-11.0)
[2021-10-11 07:11] LABS: ALBUMIN 2.3 g/dL (3.4-5.0); CALCIUM 8.9 mg/dL (8.5-10.1); CREATININE 0.7 mg/dL (0.7-1.3); TOTAL BILIRUBIN 0.6 mg/dL (0.2-1.0); TOTAL PROTEIN 6.4 g/dL (6.4-8.2)
[2021-10-11 07:29] LABS: POTASSIUM 4.8 mmol/L (3.5-5.1)
--- NOTE | 2021-10-11 07:42 | EKG ---
[address] [address] ELECTROCARDIOGRAM REPORT Name: RIGOBERTO LAI Room #: 140-4 ADM IN M.R.#: [id number] Admission: 10/10/21 Attend Phys: Eric Hoyt MD Discharge: Date of : 59 Report #: [id number] [facility] ED Test Date: 2021-10-10 Test Time: 13:57:27 Pat Name: RIGOBERTO LAI Department: Room: 140 Gender: M Wire Loop Machine Operator: [id number] : 1955 Requested By: Amarilis Pierce Order Number: [id number] MD: Emil Jaramillo Measurements Intervals [place] Rate: 84 P: 49 [place]: 171 QRS: 1 QRSD: 114 T: 23 QT: 381 QTc: 451 Interpretive Statements Sinus rhythm Borderline intraventricular conduction delay Compared to ECG 09/24/2021 17:03:05 Left anterior fascicular block no longer present Incomplete right bundle-branch block no longer present Right bundle-branch block no longer present ST (T wave) deviation no longer present Electronically Signed On 10-11-2021 7:42:15 SENIOR ABAP DEVELOPER by Emil Jaramillo [email or web address] <ELECTRONICALLY SIGNED> By: Emil Jaramillo MD, FACC 10/11/21 0742 1357 1357 Emil Jaramillo MD, [facility] /EPI
[2021-10-11 19:24] VITALS: BP 103/65
--- NOTE | 2021-10-11 19:34 | NUR ---
ATTEMPTED TO CALL REPORT TO INPATIENT NURSE, WAS LEFT ON HOLD
--- NOTE | 2021-10-11 19:44 | NUR ---
SECOND ATTEMPT AT GIVING REPORT, NO ANSWER ON UNIT
[2021-10-11 20:53] VITALS: BP 100/67
[2021-10-11 21:00] VITALS: BP 120/67
[2021-10-12 00:30] VITALS: BP 114/72
--- NOTE | 2021-10-12 03:56 | NUR ---
ADMISSION: PT ARRIVED ON UNIT FROM ER AT APPROX 2100. PT ALERT & ORIENTED X 4, CALM & COOPERATIVE. PT HAS NO C/O OF PAIN, NAUSEA/VOMITTING. CURRENTLY ON RA AND O2 SATS 94-99%. PT HAS C/O OF GENERALIZED WEAKNESS AND HAS AN UNSTEADY GAIT. EDUCATED PT ON USING CALL LIGHT WHEN NEEDED AND BED ALARM IS ON. PT USES URINAL AT BEDSIDE. IV ABX ADMINISTERED. VSS AFEBRILE. SR ON TELE MONITOR. CARE PLAN ACTIVATED, MED REC COMPLETED, AND INTERVENTIONS SET. PT IS ABLE TO MAKE NEEDS KNOWN. WILL CONTINUE TO MONITOR.
[2021-10-12 04:40] VITALS: BP 120/70
[2021-10-12 07:52] VITALS: BP 114/75
--- NOTE | 2021-10-12 11:29 | EKG ---
[address] [place] [address] ELECTROCARDIOGRAM REPORT Name: RIGOBERTO LAI Room #: 355-P ADM IN M.R.#: [id number] Admission: 10/10/21 Attend Phys: Eric Hoyt MD Discharge: Date of : 59 Report #: [id number] [facility] ED Test Date: 2021-10-11 Test Time: 18:54:38 Pat Name: RIGOBERTO LAI Department: Room: 355 P Gender: M Core Java Engineer: ASAEL : 1955 Requested By: Eric Hoyt Order Number: [id number] MD: Cr Cuevas Measurements Intervals [place] Rate: 76 P: 49 [place]: 178 QRS: -1 QRSD: 107 T: 21 QT: 406 QTc: 457 Interpretive Statements Sinus rhythm Borderline ST elevation, diffuse leads Compared to ECG 10/10/2021 13:57:27 No significant change was found Electronically Signed On 10-12-2021 11:29:30 AUTOMOBILE CLUB INFORMATION CLERK by Cr Cuevas [email or web address] <ELECTRONICALLY SIGNED> By: Cr Cuevas MD, [facility] 10/12/21 1129 1854 185 Cr Cuevas MD, [facility] /EPI
[2021-10-12 11:31] VITALS: BP 118/75
--- NOTE | 2021-10-12 16:40 | NUR ---
ASSUMED PT CARE THIS AM. PT IS ALERT & ORIENTED X4. PT HAS IV SITE ON LAC SALINE LOCKED. PT TOLERATED DIET AND MEDICATION WELL. NO C/O OF PAIN, NAUSEA AND VOMITING. SENT MRSA PCR THIS AM. PT HAS TELE MONITOR ON. PT WAS WORKING WITH PHYSICAL AND OCCUPATIONAL THERAPY THIS AM. PT IS CURRENTLY SITTING ON THE CHAIR WITH ALARM ON AND CALL LIGHT WITHIN REACH. WILL CONTINUE TO MONITOR PT. FOLLOW POC.
[2021-10-12 16:53] VITALS: BP 117/80
[2021-10-12 19:46] VITALS: BP 110/74
--- NOTE | 2021-10-12 21:32 | NUR ---
PT WATCHING FOOTBALL. PT ASSISTED WITH BEDSIDE BATH. LUNGS DIMINISHED. PT PROVIDED HS SNACK. IVF INTACT. BED ALARM ON. PT CALLS FOR ASSIST. O2 PER NC 1L, SOA WITH EXERTION.
[2021-10-12 23:07] LABS: ABSOLUTE NEUTROPHILS 6.4 thou/uL (1.4-8.2); BASOPHILS 0.4 % (0.0-2.0); EOSINOPHILS 0.3 % (0.0-3.0); HEMOGLOBIN 11.3 gm/dL (14.0-18.0); LYMPHOCYTES 7.6 % (24.0-44.0); MCH 27.5 pg (26.0-34.0); MCHC 33.1 g/dL (28.0-37.0); MCV 83.1 fL (80.0-100.0); MONOCYTES 9.4 % (1.0-8.0); PLATELET COUNT 429 thou/uL (150-400); POLYS 82.3 % (36.0-66.0); RBC 4.09 mil/uL (4.50-6.00); RDW 14.1 % (10.5-14.5); WBC 7.7 thou/uL (4.0-11.0)
[2021-10-13 04:00] VITALS: BP 116/58
--- NOTE | 2021-10-13 05:02 | HC ---
[facility] [place] [place] [address] CONSULTATION Name: RIGOBERTO LAI Room #: 355-P ADM IN M.R.#: [id number] Admission: 10/10/21 Attend Phys: Eric Hoyt MD Discharge: Date of : 59 Report #: [id number] THIS REPORT FOR: cc: Josseline Wiley DNP, Mary E. DNP Barry, Joseph W. MD ~ DATE OF SERVICE: 10/11/2021 INFECTIOUS DISEASE CONSULTATION ATTENDING PHYSICIAN: Dr. Hoyt. REASON FOR EVALUATION: COVID-19 infection, complicated by pneumonitis. HISTORY OF PRESENT ILLNESS: Chart reviewed. The patient examined. This is a 66-year-old gentleman with known history of COPD, presented to the Emergency Room with complaints of productive cough, weakness and chills. It is notable he was seen in the Emergency Room on 09/24. Although his COVID testing was negative, he did have a positive influenza antigen for type B. He notes ____ generally improved. On reevaluation, he was found to have a positive COVID test in addition to a persistently positive influenza A and B antigen test. Chest x-ray showed mild to moderate bilateral focal infiltrates. Followup chest CT showed no evidence of pulmonary emboli, did have some mediastinal and hilar lymphadenopathy, felt to be reactive. Procalcitonin less than 0.05. Urinalysis was unremarkable. Blood cultures collected at time of admission are sterile thus far. He was empirically started on combination therapy including cefepime and vancomycin empirically as well as Tamiflu. He denies any dyspnea at rest, currently is on room air. ALLERGIES: None known. CURRENT MEDICATIONS: Include enoxaparin, zinc, guaifenesin, famotidine, dexamethasone, cholecalciferol, ascorbic acid, vancomycin, ipratropium-albuterol inhaler, p.r.n. analgesics, antiemetics, cefepime, received levofloxacin, and he is on Tamiflu. PAST MEDICAL HISTORY: As above noted COPD, previous history of gastric bypass. SOCIAL HISTORY: Nonsmoker, no ethanol. FAMILY HISTORY: Noncontributory. REVIEW OF SYSTEMS: Otherwise, unremarkable. Denies any gastrointestinal related complaints. PHYSICAL EXAMINATION: [facility] [address] [place] [address] CONSULTATION Name: RIGOBERTO LAI Room #: [address] [place] [address] [place] [facility].#: [id number] Admission: 10/10/21 Attend Phys: Eric Hoyt MD Discharge: Date of : 59 Report #: [id number] GENERAL: He is alert, cooperative. He is in mild distress. He is lucid. VITAL SIGNS: Temperature 98.5, pulse 76, respirations 22, blood pressure 104/69. SKIN: Warm, dry, no rashes. HEENT: Normocephalic. Extraocular muscles intact. NECK: Supple. LUNGS: Diminished breath sounds. Few crackles at the bases. HEART: Regular. I do not appreciate a murmur. ABDOMEN: Soft, nontender, nondistended. EXTREMITIES: No cyanosis. GENITOURINARY AND RECTAL: Deferred. LABORATORY DATA: Blood cultures sterile thus far. Electrolytes: Sodium 139, potassium 4.8, chloride 104, bicarbonate is 26, anion gap of 9, BUN and creatinine 13 and 0.7. LFTs unremarkable. Albumin of 2.3, total protein 6.4. Estimated GFR of 114. CBC: White count 6.5, H and H 12.4 and 37.1, platelets of 400. Urinalysis, 6-15 white cells. Lactic acid 1.5. CT as noted above. ASSESSMENT AND PLAN: COVID-19 infection, complicated by pneumonitis. Also, apparently his influenza was persistently positive in spite of perhaps resolution of the illness. We will continue current approach as prescribed. He is not producing sputum though. We will have an order to check a urinary antigen, introduce incentive spirometry. At this point, we will hold off on remdesivir, any monoclonal antibody, immune modulating medicines. <ELECTRONICALLY SIGNED> By: Osiel Sousa MD 10/13/21 0502 [id number] Osiel Sousa MD /nt
[2021-10-13 06:58] VITALS: BP 111/67
[2021-10-13] MEDS ORDERED: VITAMIN D325 MC2 PO (10:11)
[2021-10-13] MEDS ORDERED: VITAMIN C1000 MG PO (10:11)
[2021-10-13] MEDS ORDERED: LEVOFLOXACIN500 MG PO (10:11)
[2021-10-13] MEDS ORDERED: DEXAMETHASONE 44 M1 PO (10:11)
[2021-10-13] MEDS ORDERED: OSELTAMIVIR PHO75 MG PO (10:11)
[2021-10-13 12:24] VITALS: BP 111/67
--- NOTE | 2021-10-13 14:25 | NUR ---
PAIEAMON ON RA. POGRESSING TOWARDS POC GOALS. DC TO HOME NOW.
== END 2021-10-13 14:26 | disposition home or self-care (01) | DRG 871 ==
LOC: ER 13:46 → ADMC 19:55 → 3W 10-11 20:48
PROVIDERS: Nurse Practitioner Family; ADMIT Internal Medicine; ATTEND Internal Medicine
DX: A41.89 Other specified sepsis (principal); U07.1 COVID-19; J12.82 Pneumonia due to coronavirus disease 2019; J96.21 Acute and chronic respiratory failure with hypoxia; J10.00 Influenza due to other identified influenza virus with unspecified type of pneumonia; N39.0 Urinary tract infection, site not specified; J44.0 Chronic obstructive pulmonary disease with (acute) lower respiratory infection; J44.1 Chronic obstructive pulmonary disease with (acute) exacerbation; H10.9 Unspecified conjunctivitis; E87.6 Hypokalemia; K21.9 Gastro-esophageal reflux disease without esophagitis; Z87.891 Personal history of nicotine dependence; Z83.3 Family history of diabetes mellitus; Z83.6 Family history of other diseases of the respiratory system
CPT/HCPCS: 10040; 10879

== ENCOUNTER 2021-10-18 16:41 | Inpatient (IN) | payer OTHER ==
[~2021-10-18] VITALS: Ht 188 cm; Wt 91.9 kg
--- NOTE | ~2021-10-18 | O ---
[facility] [address] OPERATIVE REPORT Name: RIGOBERTO LAI Room #: 355-P ADM IN M.R.#: [id number] Admission: 10/18/21 Attend Phys: Gael Park MD Discharge: Date of : 59 Report #: [id number] THIS REPORT FOR: cc: Josseline Wiley DNP, Mary E. DNP Joseph, Sigi P. MD ~ DATE OF SERVICE: 10/20/2021 PREOPERATIVE DIAGNOSIS: Suspected internal hernia. History of gastric bypass. POSTOPERATIVE DIAGNOSES: 1. Normal diagnostic laparoscopy. 2. History of gastric bypass. OPERATIVE PROCEDURE DONE: Diagnostic laparoscopy. OPERATING SURGEON: Ish Cartagena MD INDICATIONS FOR THE PROCEDURE: The patient is a 66-year-old male who is presently admitted with COVID pneumonia and has been complaining of nonspecific abdominal pain. The CT scan that was done showed features of a suspected internal hernia. The patient was advised diagnostic laparoscopy. The patient showed understanding and agreed to proceed. PROCEDURE IN DETAIL: After explaining to the patient in detail and informed consent was obtained, the patient was identified in the preoperative holding area. The patient was transferred to the operating room and was placed in supine position. Sequential compression devices were placed for DVT prophylaxis. Preoperative antibiotics were given. After induction of anesthesia, the abdomen was prepped and draped in a sterile fashion. Through a right upper quadrant, a 1 cm incision and using Optiview technique, peritoneal cavity was entered and pneumoperitoneum was created. Thereafter, under direct vision, another 5 mm trocar was placed in the right lower quadrant, another 5 mm trocar was placed in the right periumbilical region. Upon initial inspection, the bowel appeared normal. There were no features to suggest any obstruction initially. I then inspected the small bowel from the gastrojejunal anastomosis downstream which is the Negin limb, the bowel appeared normal. The anastomosis appeared intact. I did not see any defect at the jejunojejunostomy site. I then inspected the common channel and the biliary limb, all of which appeared normal. I once again inspected the small bowel and ran the entire small bowel and the colon, which all appeared normal. There were few adhesions that were noted on the right side. I then deflated the abdomen. Absolute hemostasis was ensured. Incisions were then closed with 4-0 Monocryl. Dermabond was applied. The patient was stable at the end of the procedure. The patient was awoken from anesthesia and was transferred to the recovery room in stable condition. Estimated blood loss was minimal. [address] [address] OPERATIVE REPORT Name: RIGOBERTO LAI Room #: 355-P [facility] IN [facility].#: [id number] Admission: 10/18/21 Attend Phys: Gael Park MD Discharge: Date of : 59 Report #: [id number] CONDITION: The patient is stable. FLUIDS GIVEN: Per anesthesia notes. SPECIMEN SENT: None. COMPLICATIONS: None. ANESTHESIA: General anesthesia. By: [id number] MD austin Herrera
[~2021-10-18 16:41] MED LIST changes: +DEXAMETHASONE 44 M1 PO; +LEVOFLOXACIN500 MG PO; +OSELTAMIVIR PHO75 MG PO; +VITAMIN C1000 MG PO; +VITAMIN D325 MC2 PO
[2021-10-18 16:46] VITALS: BP 139/76
[2021-10-18 17:44] LABS: HEMATOCRIT 40.6 % (42.0-52.0); HEMOGLOBIN 13.5 gm/dL (14.0-18.0); MCH 28.1 pg (26.0-34.0); MCHC 33.4 g/dL (28.0-37.0); MCV 84.1 fL (80.0-100.0); PLATELET COUNT 349 thou/uL (150-400); RBC 4.82 mil/uL (4.50-6.00); RDW 14.3 % (10.5-14.5); WBC 9.1 thou/uL (4.0-11.0)
[2021-10-18 18:00] LABS: APTT 22.9 Seconds (24.5-32.8); INR 1.1
[2021-10-18 18:06] LABS: CALCIUM 8.8 mg/dL (8.5-10.1); POTASSIUM 3.7 mmol/L (3.5-5.1)
[2021-10-18 18:11] LABS: ALBUMIN 3.4 g/dL (3.4-5.0); TOTAL BILIRUBIN 0.5 mg/dL (0.2-1.0); TOTAL PROTEIN 6.6 g/dL (6.4-8.2)
[2021-10-18 20:14] LABS: ABSOLUTE NEUTROPHILS 7.4 thou/uL (1.4-8.2); ATYPICAL LYMPHS 1 %; METAMYELOCYTES 1 %
[2021-10-19 08:08] VITALS: BP 119/66
[2021-10-19 12:11] VITALS: BP 119/62
[2021-10-19 13:14] VITALS: BP 127/73
[2021-10-19 15:58] VITALS: BP 111/85
--- NOTE | 2021-10-19 17:59 | NUR ---
ADMISSION NOTE: PT ADMITTED APPROX 1345. PT A/O X 4. COMPLAINTS OF PAIN IN ABDOMEN. 2 L NC. CONSENTS SIGNED VERBALLY DUE TO COVID. PT TO USE URINAL AND BSC NEEDED. ORIENTED PT TO ROOM, CALL LIGHT AND BEDSIDE TABLE WITHIN REACH. PT IN ENHANCED PRECAUTIONS DUE TO COVID. PT TO BE NPO HE WILL HAVE SURGERY TOMORROW. NO NEEDS AT THE MOMENT. WILL CONTINUE TO MONITOR.
[2021-10-19 19:35] VITALS: BP 120/72
[2021-10-20 00:34] VITALS: BP 118/70
[2021-10-20 03:58] VITALS: BP 120/74
--- NOTE | 2021-10-20 06:29 | NUR ---
ASSUMED PT CARE AT 1900. PT IS ON NPO STATUS FOR AN INTERNAL HERNIA SURGERY SCHEDULED TODAY. VSS AFEBRILE. CURRENTLY ON 2L O2 NC AND O2 SATS > 95% PT IS ABLE TO MAKE NEEDS KNOWN. WILL CONTINUE TO MONITOR.
[2021-10-20 07:22] VITALS: BP 116/79
[2021-10-20 15:23] VITALS: BP 110/64
[2021-10-20 17:13] LABS: ABSOLUTE NEUTROPHILS 4.9 thou/uL (1.4-8.2); BASOPHILS 0.5 % (0.0-2.0); EOSINOPHILS 1.1 % (0.0-3.0); HEMATOCRIT 38.7 % (42.0-52.0); HEMOGLOBIN 12.5 gm/dL (14.0-18.0); LYMPHOCYTES 15.6 % (24.0-44.0); MCH 27.6 pg (26.0-34.0); MCHC 32.4 g/dL (28.0-37.0); MCV 85.3 fL (80.0-100.0); MONOCYTES 7.8 % (1.0-8.0); RBC 4.54 mil/uL (4.50-6.00); RDW 15.5 % (10.5-14.5); WBC 6.5 thou/uL (4.0-11.0)
[2021-10-20 17:24] LABS: PLATELET COUNT 274 thou/uL (150-400)
[2021-10-20 17:31] LABS: CALCIUM 8.5 mg/dL (8.5-10.1); CREATININE 0.8 mg/dL (0.7-1.3); MAGNESIUM 2.3 mg/dL (1.8-2.4); POTASSIUM 3.5 mmol/L (3.5-5.1); TOTAL BILIRUBIN 0.5 mg/dL (0.2-1.0); TOTAL PROTEIN 5.9 g/dL (6.4-8.2)
[2021-10-20 17:57] LABS: FERRITIN 417 ng/mL (26-388)
[2021-10-20 20:29] VITALS: BP 113/67
--- NOTE | 2021-10-21 04:36 | NUR ---
ASSUMED PT CARE AT 1900. PT RESTING COMFORTABLY. PT HAD A DIAGNOSTIC ABDOMINAL LAPROSCOPY ON 10/20. SURGICAL SITES ON ABDOMEN ARE DRY AND INTACT. PT HAD C/O OF MILD PAIN. ADMINISTERED TYLENOL PRN AND NOTED RELIEF. VSS AFEBRILE. CURRENTLY ON RA AND O2 SATS 95-96%. PT IS ABLE TO MAKE NEEDS KNOWN AND IS PROGRESSING TOWARDS POC GOALS.
[2021-10-21 05:21] VITALS: BP 114/69
[2021-10-21 06:19] LABS: ABSOLUTE NEUTROPHILS 4.7 thou/uL (1.4-8.2); BASOPHILS 1.1 % (0.0-2.0); EOSINOPHILS 2.9 % (0.0-3.0); HEMATOCRIT 39.5 % (42.0-52.0); HEMOGLOBIN 12.8 gm/dL (14.0-18.0); LYMPHOCYTES 15.5 % (24.0-44.0); MCH 27.9 pg (26.0-34.0); MCHC 32.5 g/dL (28.0-37.0); MCV 85.8 fL (80.0-100.0); MONOCYTES 7.5 % (1.0-8.0); PLATELET COUNT 264 thou/uL (150-400); RBC 4.61 mil/uL (4.50-6.00); RDW 15.6 % (10.5-14.5); WBC 6.4 thou/uL (4.0-11.0)
[2021-10-21 06:29] LABS: CALCIUM 8.6 mg/dL (8.5-10.1); CREATININE 0.8 mg/dL (0.7-1.3); POTASSIUM 3.8 mmol/L (3.5-5.1)
[2021-10-21 07:49] VITALS: BP 121/73
[2021-10-21 15:26] VITALS: BP 122/75
--- NOTE | 2021-10-21 18:05 | NUR ---
ASSUMED PAIENT CARE AT 0700. A/O X4. STILL C/O ABD PAIN 11/22. NO N/V. WILL KEEP MONITOR.
[2021-10-21 19:40] VITALS: BP 114/67
--- NOTE | 2021-10-22 00:04 | NUR ---
PT PROGRESSING TOWARDS D/C GOALS. VSS AFEBRILE. UNLABORED ON RA. DENIED ABDOMINAL PAIN SO FAR TONIGHT. BED DOWN. CALL LIGHT IN REACH. URINAL AT BS. NO S/S DISTRESS.
[2021-10-22 04:03] VITALS: BP 117/67
[2021-10-22 04:35] LABS: ABSOLUTE NEUTROPHILS 4.5 thou/uL (1.4-8.2); BASOPHILS 1.2 % (0.0-2.0); EOSINOPHILS 1.8 % (0.0-3.0); HEMOGLOBIN 12.4 gm/dL (14.0-18.0); LYMPHOCYTES 17.7 % (24.0-44.0); MCHC 32.7 g/dL (28.0-37.0); MCV 85.6 fL (80.0-100.0); MONOCYTES 7.1 % (1.0-8.0); PLATELET COUNT 263 thou/uL (150-400); POLYS 72.2 % (36.0-66.0); RBC 4.44 mil/uL (4.50-6.00); RDW 15.4 % (10.5-14.5); WBC 6.3 thou/uL (4.0-11.0)
[2021-10-22 04:58] LABS: CALCIUM 8.7 mg/dL (8.5-10.1); CREATININE 0.7 mg/dL (0.7-1.3); POTASSIUM 3.2 mmol/L (3.5-5.1)
--- NOTE | 2021-10-22 05:12 | NUR ---
PT PROGRESSING TOWARDS D/C GOALS. VSS. AFEBRILE. DENIED ABDOMINAL PAIN THIS AM. 3 SURGICAL SITES REMAIN WELL APPROXIMATED WITH NO DRAINAGE NOTED.
[2021-10-22 07:43] VITALS: BP 120/70
--- NOTE | 2021-10-22 09:53 | NUR ---
Nutrition: pt admitted with acute hypoxemic respiratory failure, COVID PNA, COPD. Hx of gastric bypass 2018, GERD, COPD, COVID. Seen due to high risk screen for poor intake, weight loss. Issues with abdominal pain. CT showed possible internal hernia so S/P dx lap on 10/20. No hernia seen. Procedure was normal. Pt did voice to RD a decreased appetite from usual past month and current weight reflecting a 2% loss from normal. Weights have been trending down post gastric bypass surgery in 2018 but had stabilized at 210#, current 205#. Pt tolerating regular diet at this time. Eating about 40% of meals. Denies desire for protein drinks at this time. Will resume at home. Instructed on ordering meals. REC resume post bypass vitamins per surgery.
[2021-10-22 15:37] VITALS: BP 117/65
--- NOTE | 2021-10-22 16:47 | NUR ---
INITIAL ASSESSMENT: SW reviewed chart and spoke with nursing and attending physician. Pt was admitted from home due to abdominal pain/hypoxia. Pt tested positive for COVID. Pt placed in Enhanced Isolation. Per chart, pt has not received a COVID vaccination. Pt is s/p diagnostic laparascopy. Pt to have an EGD tomorrow. SW spoke with pt via phone. Introduced role of SW. Pt is alert/orientated x 4. Pt reports he lives at home with his and son. Prior to admission, pt was independent with ADLs. No use of DME. No hx of HH or post-acute placement. Pt's PCP is Dr. Kylah Montez. Pt's previous PCP, Dr. Josseline Wiley, recently retired. Plan is for pt to discharge home when medically stable. SW is following to assist as needed with discharge planning.
[2021-10-22 19:03] VITALS: BP 103/67
--- NOTE | 2021-10-23 03:50 | NUR ---
Slept fair during the night. Denies any pain. No shortness of breath. Cont. on enhanced precaution , afebrile. Abd lap sites well approximated. Kept NPO for EGD today.
[2021-10-23 04:26] VITALS: BP 120/79
[2021-10-23 05:17] LABS: HEMOGLOBIN 12.2 gm/dL (14.0-18.0); MCH 28.3 pg (26.0-34.0); MCV 85.8 fL (80.0-100.0); RBC 4.31 mil/uL (4.50-6.00); WBC 5.2 thou/uL (4.0-11.0)
[2021-10-23 05:38] LABS: CREATININE 0.7 mg/dL (0.7-1.3); POTASSIUM 3.8 mmol/L (3.5-5.1)
[2021-10-23 07:37] VITALS: BP 110/70
[2021-10-23] MEDS ORDERED: HYDROCODON-ACE1 EAC7 PO (08:53)
[2021-10-23] MEDS ORDERED: CARAFATE1 GM/10 ML PO (08:53)
[2021-10-23] MEDS ORDERED: PROTONIX 20 MG20 M1 PO (08:53)
[2021-10-23] MEDS ORDERED: MIRALAX17 GM PO (08:53)
[2021-10-23] MEDS ORDERED: PREDNISONE 10 M10 M1 PO (10:43)
[2021-10-23 11:00] VITALS: BP 110/70
[2021-10-23 11:15] VITALS: BP 110/70
--- NOTE | 2021-10-23 12:54 | NUR ---
DISCHARGE NOTE: SW reviewed chart and spoke with nursing and attending physician. Pt remains in Enhanced Isolation. Pt is afebrile and on room air. Pt's diet is being advanced. EGD planned for today has been cancelled due to COVID status. Pt will follow up with GI as an outpatient for the EGD. Discharge orders completed. SW spoke with pt via phone to discuss discharge plan. Pt is aware and in agreement with plan. Pt states his car is in the parking lot and he feels that he is able to drive home. Pt states he can also call for a ride home if needed. ASHLEY updated pt's nurse. No SW discharge needs identified at this time. SW is available to assist should needs arise.
[2021-10-23 13:09] VITALS: BP 110/70
[2021-10-23] MEDS ORDERED: OMEPRAZOLE40 MG PO (14:20)
[2021-10-23 14:32] VITALS: BP 110/70
--- NOTE | 2021-10-23 23:02 | HC ---
[facility] [place] [address] CONSULTATION Name: RIGOBERTO LAI Room #: 355-[facility] IN M.R.#: [id number] Admission: 10/18/21 Attend Phys: Gael Park MD Discharge: 10/23/21 Date of : 59 Report #: [id number] THIS REPORT FOR: cc: Josseline Wiley DNP, Mary E. DNP Geha, Daniel J. MD ~ DATE OF SERVICE: 10/21/2021 INFECTIOUS DISEASES CONSULTATION REASON FOR CONSULTATION: COVID-19 infection. HISTORY OF PRESENT ILLNESS: The patient is a 66-year-old who was admitted on 10/10/2021 with COVID-19 pneumonia, also identified influenza both A and B were positive. Treated for both infections. Discharged on 10/13/2021. Also had evidence of urinary tract infection. He has underlying COPD and gastric bypass. He was discharged on Levaquin, dexamethasone and Tamiflu along with vitamin C and vitamin D. He returned on 10/18/2021 with shortness of breath, nonproductive cough, hypoxia, abdominal pain. He had no nausea or vomiting. He has had no diarrhea. Denied any back or flank discomfort. No dysuria or frequency. His cough was nonproductive. No hemoptysis. No pleuritic chest pain. CT imaging was concerning for internal intestinal hernia. Laparoscopic evaluation proved negative. Postoperatively, he has done well with no fever, chills or sweats. He has had minimal cough. He remains off oxygen. No nausea or vomiting. No diarrhea. He still has some abdominal discomfort postop, but is progressing nicely. Denies any dysuria. The patient was vaccinated for COVID-19. It is noted that his symptoms onset was approximately 4 days prior to his initial presentation, making it 10/06. PAST MEDICAL HISTORY: COPD, urinary tract infection, gastroesophageal reflux, gastric bypass. FAMILY HISTORY: Negative for tuberculosis. SOCIAL HISTORY: Nonsmoker, no significant alcohol intake. Past smoker. ALLERGIES: None known. MEDICATIONS: As noted on his MAR, which were reviewed. REVIEW OF SYSTEMS: A 14-point review of system was negative other than what has been described above. PHYSICAL EXAMINATION: GENERAL: He was afebrile and hemodynamically stable. He is alert, cooperative [address] [address] CONSULTATION Name: RIGOBERTO LAI Room #: 355-P [facility] IN ..#: [id number] Admission: 10/18/21 Attend Phys: Gael Park MD Discharge: 10/23/21 Date of : 59 Report #: [id number] and pleasant. No acute distress. SKIN: Without rash or decubitus. No palpable adenopathy. He was of normal weight. HEENT: Eyes without scleral icterus. Mouth without mucositis. NECK: Supple. LUNGS: Few crackles in the bases bilaterally. HEART: Regular, without murmur, gallop or rub. ABDOMEN: Soft, minimally tender, no hepatosplenomegaly or mass. EXTREMITIES: Without clubbing, cyanosis or edema. NEUROLOGIC: Cranial nerves intact and strength in the upper and lower extremities was symmetric. PSYCHIATRIC: Mood without anxiety. BACK: No spinal tenderness. LABORATORY DATA: Reviewed. MICROBIOLOGY: Reviewed. IMAGING: CT scan of the chest and abdomen reviewed. IMPRESSION: The patient presented with respiratory failure, recent diagnosis of COVID-19 with bilateral pulmonary infiltrates without evidence of PE. He is now 2 weeks past initial onset of his symptoms. May also be dealing with a component of COPD exacerbation. The internal hernia proved to be negative on laparoscopy. He also has evidence of likely reactive adenopathy in the hilar regions on CT scan. RECOMMENDATION: We will continue his current antibiotic program and agree with steroids for COPD exacerbation. At 14 days now with him being off oxygen and having received no remdesivir during his previous evaluation, I do not think it would be necessary at this time though he is beyond his time of viremia. <ELECTRONICALLY SIGNED> By: Harley Vela MD 10/23/21 2302 [id number] Harley Vela MD /nt
== END 2021-10-23 15:30 | disposition home or self-care (01) | DRG 356 ==
LOC: ER 16:41 → 3W 21:29 → EROBS 21:29 → 3W 10-19 12:40
PROVIDERS: Hospitalist; Internal Medicine; Nurse Practitioner; Nurse Practitioner Family; ADMIT Hospitalist; ATTEND Hospitalist
PROC: 0WJP4ZZ Inspection of Gastrointestinal Tract, Percutaneous Endoscopic Approach (ICD-10-PCS; principal; 2021-10-20)
DX: K46.9 Unspecified abdominal hernia without obstruction or gangrene (principal); J96.01 Acute respiratory failure with hypoxia; U07.1 COVID-19; J12.82 Pneumonia due to coronavirus disease 2019; J11.08 Influenza due to unidentified influenza virus with specified pneumonia; J44.1 Chronic obstructive pulmonary disease with (acute) exacerbation; N39.0 Urinary tract infection, site not specified; U09.9 Post COVID-19 condition, unspecified; D64.9 Anemia, unspecified; K21.9 Gastro-esophageal reflux disease without esophagitis; Z87.891 Personal history of nicotine dependence; Z98.84 Bariatric surgery status; Z28.21 Immunization not carried out because of patient refusal
CPT/HCPCS: 10080; 10879; 50101; 50386; 50555; 52265; 52266; 53307; 54118; 56462; 56525; 56526; 57092; 58574; 62110; 62900

== ENCOUNTER 2021-11-26 09:38 | Emergency (ER) | payer OTHER ==
[~2021-11-26] VITALS: Ht 188 cm; Wt 90.7 kg
[~2021-11-26 09:38] MED LIST changes: +CARAFATE1 GM/10 ML PO; +HYDROCODON-ACE1 EAC7 PO; +MIRALAX17 GM PO; +OMEPRAZOLE40 MG PO; +PROTONIX 20 MG20 M1 PO
[2021-11-26 10:57] LABS: BASOPHILS 0.9 % (0.0-2.0); EOSINOPHILS 4.7 % (0.0-3.0); HEMATOCRIT 38.9 % (42.0-52.0); HEMOGLOBIN 12.8 gm/dL (14.0-18.0); LYMPHOCYTES 14.4 % (24.0-44.0); MCHC 32.8 g/dL (28.0-37.0); MCV 85.4 fL (80.0-100.0); MONOCYTES 7.5 % (1.0-8.0); PLATELET COUNT 253 thou/uL (150-400); POLYS 72.5 % (36.0-66.0); RBC 4.55 mil/uL (4.50-6.00); RDW 15.2 % (10.5-14.5); WBC 5.5 thou/uL (4.0-11.0)
[2021-11-26 11:11] LABS: CALCIUM 8.9 mg/dL (8.5-10.1); CREATININE 0.8 mg/dL (0.7-1.3); POTASSIUM 4.1 mmol/L (3.5-5.1)
[2021-11-26 12:48] LABS: BE(vivo) -1.4 mmol/L (-2 to +3); HCO3 22.3 mmol/L (22.0-26.0); PCO2 34.6 mmHg (35.0-45.0); PO2 83.8 mmHg (80.0-100.0); pH 7.427 (7.360-7.450); sO2 96.6 % (92.0-98.0)
[2021-11-26] MEDS ORDERED: PREDNISONE 20 M20 MG PO (13:00)
[2021-11-26] MEDS ORDERED: TESSALON PERLE100 MG PO (13:00)
[2021-11-26] MEDS ORDERED: AZITHROMYCIN 2250 MG PO (13:00)
[2021-11-26 13:11] VITALS: BP 119/66
--- NOTE | 2021-11-27 10:25 | EKG ---
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: UNKNOWN : 1955 Requested By: Bishop Moore Order Number: [id number] MD: Emil Jaramillo Measurements Intervals [place] Rate: 66 P: -48 NV: 165 QRS: -16 QRSD: 107 T: 28 QT: 426 QTc: 447 Interpretive Statements NSR RSR' in V1 or V2, right VCD or RVH Left ventricular hypertrophy Baseline wander in lead(s) II,III,aVF Compared to ECG 10/11/2021 18:54:38 Ectopic atrial rhythm now present Right ventricular hypertrophy now present RSR' in V1 or V2 now present Left ventricular hypertrophy now present Sinus rhythm no longer present Electronically Signed On 11-27-2021 10:24:47 DIRECTOR OF DIRECT MARKETING by Emil Jaramillo [email or web address] <ELECTRONICALLY SIGNED> By: Emil Jaramillo MD, FACC 11/27/21 1024 1040 1040 Emil Jaramillo MD, FAC /EPI
== END 2021-11-26 13:24 | disposition home or self-care (01) ==
LOC: ER 09:38
PROVIDERS: Emergency Medicine
DX: J44.1 Chronic obstructive pulmonary disease with (acute) exacerbation (principal); K21.9 Gastro-esophageal reflux disease without esophagitis; J45.909 Unspecified asthma, uncomplicated; Z86.16 Personal history of COVID-19; Z79.51 Long term (current) use of inhaled steroids; Z79.899 Other long term (current) drug therapy; Z87.891 Personal history of nicotine dependence

== ENCOUNTER 2021-12-09 13:03 | Emergency (ER) | payer OTHER ==
[~2021-12-09] VITALS: Ht 188 cm; Wt 90.7 kg
[~2021-12-09 13:03] MED LIST changes: +AZITHROMYCIN 2250 MG PO; +TESSALON PERLE100 MG PO
[2021-12-09 13:50] LABS: ABSOLUTE NEUTROPHILS 4.4 thou/uL (1.4-8.2); BASOPHILS 0.6 % (0.0-2.0); HEMATOCRIT 39.8 % (42.0-52.0); HEMOGLOBIN 13.3 gm/dL (14.0-18.0); LYMPHOCYTES 13.6 % (24.0-44.0); MCH 28.1 pg (26.0-34.0); MCHC 33.4 g/dL (28.0-37.0); MCV 84.3 fL (80.0-100.0); MONOCYTES 6.8 % (1.0-8.0); PLATELET COUNT 215 thou/uL (150-400); RBC 4.72 mil/uL (4.50-6.00); RDW 15.3 % (10.5-14.5); WBC 5.9 thou/uL (4.0-11.0)
[2021-12-09 13:57] LABS: POTASSIUM 3.9 mmol/L (3.5-5.1)
[2021-12-09] MEDS ORDERED: PREDNISONE 20 M20 MG PO (14:16)
[2021-12-09] MEDS ORDERED: AZITHROMYCIN 2250 MG PO (14:16)
[2021-12-09 14:48] VITALS: BP 128/72
--- NOTE | 2021-12-10 08:29 | EKG ---
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: KERRIE : 1955 Requested By: Bishop Moore Order Number: [id number] MD: Keo Senior Measurements Intervals [place] Rate: 76 P: 68 MA: 163 QRS: -23 QRSD: 109 T: 58 QT: 395 QTc: 445 Interpretive Statements Sinus rhythm Inferolateral infarct, old Compared to ECG 11/26/2021 10:40:52 Myocardial infarct finding now present Right ventricular hypertrophy no longer present Left ventricular hypertrophy no longer present Electronically Signed On 12-10-2021 8:29:42 TRUCKER by Keo Senior [email or web address] <ELECTRONICALLY SIGNED> By: Keo Senior MD 12/10/2129 Keo Seinor MD /DALLIN
== END 2021-12-09 14:49 | disposition home or self-care (01) ==
LOC: ER 13:03
PROVIDERS: Emergency Medicine
DX: J44.9 Chronic obstructive pulmonary disease, unspecified (principal); Z20.822 Contact with and (suspected) exposure to COVID-19; K21.9 Gastro-esophageal reflux disease without esophagitis; J45.909 Unspecified asthma, uncomplicated; Z86.16 Personal history of COVID-19; Z79.51 Long term (current) use of inhaled steroids; Z79.899 Other long term (current) drug therapy; Z87.891 Personal history of nicotine dependence